=== PATIENT | male | born 1940 | race Caucasian/White ===

== ENCOUNTER 2019-09-04 14:05 | Emergency (ER) | payer MEDICARE ==
--- NOTE | 2019-09-04 15:02 | RAD ---
PORTABLE CHEST: Date: 09/04/2019 PROVIDED CLINICAL HISTORY: Shortness of breath. FINDINGS: The cardiac silhouette appears enlarged. There is prominence of the pulmonary vasculature and pulmona ry interstitium. No focal consolidation is evident. There is blunting of the left costophrenic angle. No evidence for pneumothorax. IMPRESSION: Cardiomegaly and findings suggesting congestive failure with possible left pleural fluid. POS: SUAD
[2019-09-04 15:09] LABS: #Basophils 0.1 thou/uL (0.0-0.2); #Eosinphils 0.4 thou/uL (0.0-0.7); #Lymphocytes 1.8 thou/uL (1.20-3.40); #Monocytes 0.6 thou/uL (0.11-0.59); #Neutrophils 4.5 thou/uL (1.40-6.50); %Basophils 1.2 % (0.0-1.0); %Eosinophils 4.9 % (0.0-10.0); %Lymphocytes 23.9 % (21.0-51.0); %Monocytes 8.7 % (0.0-10.0); %Neutrophils 61.4 % (42.0-75.0); Hemoglobin 12.9 g/dL (14.0-18.0); Mean Corpuscular HGB CONC 32.1 g/dL (32.0-36.0); Mean Corpuscular Hemoglobin 33.5 pg (27.0-31.0); Mean Platelet Volume 7.3 fL (7.4-10.4); Platelet Count 208 thou/uL (130-400); RBC Distribution Width 14.1 % (11.5-14.5); Red Blood Cell (RBC) Count 3.86 mill/uL (4.70-6.10); White Blood Cell (WBC) Count 7.4 thou/uL (4.8-10.8)
[2019-09-04 15:17] LABS: INR-International Normal Ratio 1.2; PTT 33.8 SEC (22.9-36.1); Prothrombin Time 15.2 SEC (12.0-14.7)
[2019-09-04 15:33] LABS: ALT (SGPT) 19 U/L (8-55); AST (SGOT) 19 U/L (5-34); Albumin 4.4 g/dL (3.4-4.8); Alkaline Phosphatase 114 U/L (40-110); Anion Gap 19 mmol/L (10-20); BUN (Urea Nitrogen) 55 mg/dL (8.4-25.7); Bilirubin, Total 0.7 mg/dL (0.2-1.2); CK (CPK) 72 U/L (30-200); Calc. Creatinine Clearance 0 mL/min (70-130); Calcium 9.4 mg/dL (7.8-10.44); Carbon Dioxide 19 mmol/L (23-31); Chloride 109 mmol/L (98-107); Estimated GFR-MDRD 10; Globulin 3.6 g/dL (2.4-3.5); Glucose 103 mg/dL (83-110); Potassium 4.8 mmol/L (3.5-5.1); Sodium 142 mmol/L (136-145)
[2019-09-04 15:56] LABS: CKMB 3.2 ng/mL (0-6.6)
--- NOTE | 2019-09-04 16:30 | ULT ---
ULTRASOUND WITH DOPPLER DUPLEX VENOUS LOWER EXTREMITIES BILATERAL: 09/04/19 HISTORY: 79-year-old male with bilateral lower extremity pain. TECHNIQUE: Color flow Doppler, spectral waveform analysis of pulsed Doppler, and harman-scale imaging with kaur spencer and augmentation, were used to evaluate the bilateral common femoral, femoral, popliteal, banana room cutter ior tibial, and superficial femoral, veins; and the proximal portions of the profunda femoral and gre ater saphenous, veins. FINDINGS: There is normal compressibility, demonstration of blood flow by color Doppler and pulsed Doppler, and response to augmentation, in all interrogated veins. IMPRESSION: Negative. No deep vein thrombosis in the bilateral lower extremities. jn[] POS: JIN
== END 2019-09-04 18:46 | disposition left against medical advice (07) ==
LOC: ERS 14:05
DX: I11.0 Hypertensive heart disease with heart failure (principal); I50.9 Heart failure, unspecified; N17.9 Acute kidney failure, unspecified; Z79.899 Other long term (current) drug therapy
CPT/HCPCS: 71045; 80053; 82550; 82553; 83880; 84484; 85025; 85610; 85730; 93005; 93970

== ENCOUNTER 2020-02-17 14:05 | Observation (INO) | payer MEDICARE, OTHER ==
[2020-02-17] MEDS ORDERED: Zolpidem Tartrate 5 MG TAB PO PRN (14:09)
[2020-02-17] MEDS ORDERED: Acetaminophen 325 MG TAB PO PRN (14:09)
--- NOTE | 2020-02-17 14:38 | PDOC.HHP ---
Hospitalist HPI - History of Present Illness Frequent falls, lower extremity weakness started today History of Present Illness: This patient is known to me. He had a fall from a ladder in September resulting in a L1 compression fracture and a head injury with LOC and disorientation for 3 days at that time. He did not seek treatment until several weeks after the accident when his back pain was not improving. I diagnosed the compression fracture and since he did not want any aggressive treatment, we put him in a corset type brace and he was improving. He had stopped using the brace, but was using crutches to get around his house, just for balance. A walker would have been better, but he did not reach out to me and just started using the crutches on his own. He reports several falls in the last few weeks. Additional history is from his and his DIL. His reports that he has had an increasing number of falls in the last few weeks, the most severe of which was yesterday when he tripped and fell out the back door, down two steps and hit his head on the concrete patio. He did not lose consciousness at that time, but this morning he was unable to stand. He is able to move both legs but cannot bear weight and appears ataxic when he tries to stand up. With significant assist from his son, he able to get to his feet but is unable to ambulate. He has a h/o non-compliance and has refused dialysis for CKD as well as refusal of medications or anticoagulation for chronic a. fib. He is not currently taking any blood thinners or aspirin. His DIL states he is DNR but his states he is full code - we will need to clarify this with them. After discussion with the family in my office, we will admit for observation and work up including imaging of the brain and possibly the lumbar spine. We will also check an ECHO and labs. Hospitalist ROS - Review of Systems Constitutional: reports: weakness. denies: fever, chills, sweats, malaise, other ENT: denies: ear pain, ear discharge, nose pain, nose discharge, nose congestion, mouth pain, mouth swelling, throat pain, throat swelling, other Respiratory: reports: shortness of breath, SOB with excertion. denies: cough, dry, hemoptysis, pleuritic pain, sputum, wheezing, other Cardiovascular: denies: chest pain, palpitations, orthopnea, paroxysmal noc. dyspnea, edema, light headedness, other Gastrointestinal: denies: nausea, vomiting, abdominal pain, diarrhea, constipation, melena, hematochezia, other Genitourinary: denies: dysuria, frequency, incontinence, hematuria, retention, other Musculoskeletal: denies: neck pain, shoulder pain, arm pain, back pain, hand pain, leg pain, foot pain, other Neurological: reports: weakness, incoordination. denies: numbness, change in speech, confusion, seizures, other Hospitalist History - Past Medical History Source: patient, family Cardiac: reports: AFIB, HTN Psych: reports: Anxiety Musculoskeletal: reports: Chronic low back pain Renal/: reports: Chronic renal failure - Past Surgical History Past Surgical History: reports: no pertinent history - Family History Family History: reports: no pertinent history - Social History Smoking Status: Never smoker Alcohol: reports: None Drugs: reports: none Living Situation: With Family Activity level: wheelchair bound - Exam General Appearance: NAD, awake alert ENT: normocephalic atraumatic, no oropharyngeal lesions, moist mucosa Neck: supple, symmetric, no JVD, no thyromegaly, no lymphadenopathy, no carotid bruit Heart: no murmur, no rubs, normal peripheral pulses, irregular Respiratory: CTAB, no wheezes, no rales, no ronchi, normal chest expansion, no tachypnea, normal percussion Gastrointestinal: soft, non-tender, non-distended, normal bowel sounds, no palpable masses, no hepatomegaly, no splenomegaly, no bruit Extremities: 1+ LE edema (Bilateral legs wth pitting to mid-hines) Skin: normal turgor, no lesions, no rashes Neurological: cranial nerve grossly intact, normal sensation to touch, no focal deficits (Ataxia with standing, unable to bear weight on his legs without assist, strength is 4/5 for movement but not weight bearing) Psychiatric: normal affect, normal behavior, A&O x 3 Hospitalist H&P A/P - Problem (1) Frequent falls Code(s): R29.6 - REPEATED FALLS Status: Acute (2) Lower extremity weakness Code(s): R29.898 - OTH SYMPTOMS AND SIGNS INVOLVING THE MUSCULOSKELETAL SYSTEM Status: Acute (3) Head injury Code(s): S09.90XA - UNSPECIFIED INJURY OF HEAD, INITIAL ENCOUNTER Status: Acute (4) Compression fracture of L1 vertebra Code(s): S32.010A - WEDGE COMPRESSION FRACTURE OF FIRST LUMBAR VERTEBRA, INIT Status: Acute (5) Atrial fibrillation Code(s): I48.91 - UNSPECIFIED ATRIAL FIBRILLATION Status: Acute (6) Noncompliance Code(s): Z91.19 - PATIENT'S NONCOMPLIANCE W OTH MEDICAL TREATMENT AND REGIMEN Status: Acute (7) CRF (chronic renal failure) Status: Acute (8) Anxiety Code(s): F41.9 - ANXIETY DISORDER, UNSPECIFIED Status: Acute - Plan Plan: 1. Admit for observation and work up 2. CT brain to rule out bleed - will likely need MRI if the CT is negative but will need sedation for MRI 3. Consider MRI of the lumbar spine as weakness seems more pronounced in the legs, no loss of bowel or bladder control 4. Check labs including renal function 5. Chronic a. fib - currently rate controlled, he has refused blood thinners and given his recent head injury will hold off on any for now. Monitor rate. Cont inue home meds 6. Clarify code status with family - he has an advance directive, request his bring in a copy 7. H/O non-complinace, he has historically not wanted to be aggressive in treatment. Will reassess after work up completed and diagnosis certain. 8. PT evaluation 9. He would likely benefit from rehab but I doubt he would agree to go. Maybe home PT and HHN at discharge if he is amenable to it.
[2020-02-17 16:08] VITALS: BMI 27.6
--- NOTE | 2020-02-17 16:14 | CT ---
Exam: Head CT without contrast HISTORY: Head injury. Fall. COMPARISON: none FINDINGS: Hemorrhage: No intraparenchymal hemorrhage or extra-axial hematoma. Brain parenchyma: Cortical harman-white matter differentiation is preserved. No mass effect or midline shift. Basilar cisterns are patent. Ventricular system: Ventricles and sulci are patent and symmetric. Calvarium: Intact. Sinuses and mastoid air cells: Adequate aeration. IMPRESSION: No intracranial post traumatic sequelae.
[2020-02-17 16:36] LABS: #Eosinphils 0.3 thou/uL (0.0-0.7); #Lymphocytes 1.4 thou/uL (1.20-3.40); #Monocytes 0.7 thou/uL (0.11-0.59); #Neutrophils 4.9 thou/uL (1.40-6.50); %Basophils 0.5 % (0.0-1.0); %Eosinophils 3.5 % (0.0-10.0); %Lymphocytes 18.8 % (21.0-51.0); %Monocytes 9.4 % (0.0-10.0); %Neutrophils 67.7 % (42.0-75.0); Mean Corpuscular HGB CONC 31.7 g/dL (32.0-36.0); Mean Corpuscular Hemoglobin 34.1 pg (27.0-31.0); Mean Platelet Volume 8.5 fL (7.4-10.4); Platelet Count 136 thou/uL (130-400); RBC Distribution Width 16.2 % (11.5-14.5); Red Blood Cell (RBC) Count 4.12 mill/uL (4.70-6.10); White Blood Cell (WBC) Count 7.2 thou/uL (4.8-10.8)
[2020-02-17 16:53] LABS: ALT (SGPT) 17 U/L (8-55); AST (SGOT) 19 U/L (5-34); Albumin 3.9 g/dL (3.4-4.8); Alkaline Phosphatase 116 U/L (40-110); Anion Gap 16 mmol/L (10-20); BUN (Urea Nitrogen) 67 mg/dL (8.4-25.7); Calc. Creatinine Clearance 15 mL/min (70-130); Calcium 9.4 mg/dL (7.8-10.44); Carbon Dioxide 18 mmol/L (23-31); Chloride 109 mmol/L (98-107); Estimated GFR-MDRD 10; Globulin 3.5 g/dL (2.4-3.5); Glucose 80 mg/dL (83-110); Potassium 4.3 mmol/L (3.5-5.1); Protein, Total 7.4 g/dL (5.8-8.1); Sodium 139 mmol/L (136-145)
[2020-02-17 17:08] LABS: MDiff Complete? YES; Macrocytosis SLIGHT = 6-15 cells (100X) (0-5/hpf); Ovalocytes SLIGHT = 2-5 cells (100X) (0-1/hpf); Platelet Morphology Comment Appears Adequate; Polychromasia SLIGHT = 2-3 cells (100X) (0-2/hpf); Tear Drops SLIGHT = 2-5 cells (100X) (0-1/hpf)
[2020-02-17] MEDS ORDERED: ALPRAZolam 1 MG TAB PO PRN (20:31)
[2020-02-17] MEDS ORDERED: Famotidine 20 MG TAB PO SCH (21:00)
[2020-02-18 04:56] LABS: #Basophils 0.1 thou/uL (0.0-0.2); #Eosinphils 0.3 thou/uL (0.0-0.7); #Lymphocytes 1.4 thou/uL (1.20-3.40); #Monocytes 0.6 thou/uL (0.11-0.59); #Neutrophils 4.3 thou/uL (1.40-6.50); %Basophils 1.2 % (0.0-1.0); %Eosinophils 3.8 % (0.0-10.0); %Lymphocytes 21.7 % (21.0-51.0); %Monocytes 8.7 % (0.0-10.0); %Neutrophils 64.6 % (42.0-75.0); Hemoglobin 13.3 g/dL (14.0-18.0); Mean Corpuscular HGB CONC 32.7 g/dL (32.0-36.0); Mean Corpuscular Hemoglobin 34.3 pg (27.0-31.0); Mean Platelet Volume 9.1 fL (7.4-10.4); Platelet Count 137 thou/uL (130-400); Red Blood Cell (RBC) Count 3.88 mill/uL (4.70-6.10); White Blood Cell (WBC) Count 6.6 thou/uL (4.8-10.8)
[2020-02-18 05:24] LABS: Anion Gap 16 mmol/L (10-20); BUN (Urea Nitrogen) 66 mg/dL (8.4-25.7); Calc. Creatinine Clearance 15 mL/min (70-130); Calcium 9.2 mg/dL (7.8-10.44); Carbon Dioxide 16 mmol/L (23-31); Chloride 111 mmol/L (98-107); Estimated GFR-MDRD 11; Glucose 82 mg/dL (83-110); Potassium 3.8 mmol/L (3.5-5.1); Sodium 139 mmol/L (136-145)
[2020-02-18] MEDS ORDERED: Diazepam 10 MG/2 ML SYRINGE IVP SCH (09:00)
[2020-02-18] MEDS ORDERED: Aspirin 325 mg Enteric Coated Tablet PO SCH (09:00)
[2020-02-18] MEDS ORDERED: Labetalol HCl 100 MG/20 ML VIAL SLOW IVP PRN (09:03)
[2020-02-18 12:00] LABS: SARS-CoV-2 MS2 Positive; SARS-CoV-2 N Gene Negative; SARS-CoV-2 S Gene Negative; SARS-CoV-2 by NAA Not Detected (NotDetected); SARS-CoV-2 orf1ab Negative
[2020-02-18 14:58] VITALS: BP 134/100; TEMP 97.4
--- NOTE | 2020-02-18 15:26 | CON ---
DATE OF CONSULTATION: 02/18/2020 REASON FOR CONSULTATION: Lower extremity weakness, frequent falls. HISTORY OF PRESENT ILLNESS: Mr. Conway is a 79-year-old male who presented to the emergency room with frequent falls and lower extremity weakness. Per the patient, he had several falls in the last few weeks. According to his , he has increased number of falls in the last few weeks. He did hit his head but he did not lose consciousness. The patient denies focal jerking, focal paresthesias, nausea, vomiting, headache, chest pain, abdominal pain, loss of vision, blurred vision, or loss of consciousness associated with the falls. He does have history of noncompliance and has refused hemodialysis for chronic kidney disease and is not on any anticoagulation for chronic atrial fibrillation. He is not on aspirin or blood thinners. He was admitted to rule out stroke. REVIEW OF SYSTEMS: All 14 systems was reviewed and was negative except the pertinent positive and negative mentioned in the HPI. PAST MEDICAL HISTORY: Atrial fibrillation, hypertension, anxiety, chronic back pain, chronic renal failure. PAST SURGICAL HISTORY: None significant. FAMILY HISTORY: No family history of stroke. SOCIAL HISTORY: The patient lives with family. Wheelchair bound. Denies smoking, alcohol, or illegal drug use. ALLERGIES: NKDA Vital Signs & Weight: Vital Signs (12 hours) Temp Pulse Resp BP Pulse Ox 02/18/20 14:57 97.4 F L 94 20 134/100 H 97 02/18/20 12:24 97.5 F L 98 20 143/107 H 95 02/18/20 07:32 97.5 F L 104 H 23 H 141/71 H 97 Weight Weight 198 lb 9.6 oz I&O: 02/17/20 02/18/20 02/19/20 06:59 06:59 06:59 Intake Total 355 12 Output Total 210 Balance 145 12 Active Medications Generic Name Dose Route Start Last Admin Trade Name Freq PRN Reason Stop Dose Admin Alprazolam 1 mg 02/17/20 20:31 02/18/20 09:10 Alprazolam 1 Mg Tab PO 1 mg BID PRN Administration Anxiety Aspirin 325 mg 02/18/20 09:00 02/18/20 10:48 Aspirin 325 Mg Enteric Coated Tablet PO 325 mg DAILY WAGNER Administration Zolpidem Tartrate 5 mg 02/17/20 14:09 09/30/20 22:06 Zolpidem Tartrate 5 Mg Tab PO 5 mg HSPRN PRN Administration Insomnia PHYSICAL EXAMINATION: General Appearance: NAD, awake alert ENT: normocephalic atraumatic, no oropharyngeal lesions, moist mucosa Neck: supple, symmetric, no JVD, no thyromegaly, no lymphadenopathy, no carotid bruit Heart: no murmur, irregular Respiratory: CTAB, no wheezes, no rales, no ronchi, normal chest expansion, no tachypnea, normal percussion Gastrointestinal: soft, non-tender, non-distended, normal bowel sounds, no palpable masses, no hepatomegaly, no splenomegaly, no bruit Extremities: 1+ LE edema Neurological: Mental status, the patient is alert and oriented to person, place, and time. Cranial nerves 2 through 12 intact. Motor, muscle tone and bulk are normal. Moving all 4 extremities. Sensory, withdraws to nailbed pressure bilaterally. Cerebellar, intact. Gait deferred due to patient's safety reason. DATA REVIEWED: I reviewed the CT scan, which was negative for acute intracranial pathology. ASSESSMENT AND PLAN: (1) Frequent falls Code(s): R29.6 - REPEATED FALLS Status: Acute (2) Lower extremity weakness Code(s): R29.898 - OTH SYMPTOMS AND SIGNS INVOLVING THE MUSCULOSKELETAL SYSTEM Status: Acute (3) Head injury Code(s): S09.90XA - UNSPECIFIED INJURY OF HEAD, INITIAL ENCOUNTER Status: Acute (4) Compression fracture of L1 vertebra Code(s): S32.010A - WEDGE COMPRESSION FRACTURE OF FIRST LUMBAR VERTEBRA, INIT Status: Acute (5) Atrial fibrillation Code(s): I48.91 - UNSPECIFIED ATRIAL FIBRILLATION Status: Acute (6) Noncompliance Code(s): Z91.19 - PATIENT'S NONCOMPLIANCE W OT MEDICAL TREATMENT AND REGIMEN Status: Acute (7) CRF (chronic renal failure) Status: Acute (8) Anxiety Code(s): F41.9 - ANXIETY DISORDER, UNSPECIFIED Status: Acute (9) T12 compression fracture Code(s): S22.080A - WEDGE COMPRESSION FRACTURE OF T11-T12 VERTEBRA, INIT Status: Acute Mr. Lesly Conway is consulted for frequent falls, and there is a concern for cerebrovascular accident. Consider MRI of the brain to rule out acute intracranial process. Consider lumbar spine MRI to rule out lumbar disc disease progression. Neuro checks every 4 hours. Continue medical management per primary team. Telemetry. PT/OT/Speech. Continue medical management per primary team. Continue home medications. We will continue to follow. Thank you for the consult. Job ID: [id number]
--- NOTE | 2020-02-18 15:36 | MRI ---
MRI BRAIN: Date: 02/18/2020 HISTORY: Evaluate for CVA. History of fall. Weakness. COMPARISON: None. FINDINGS: No evidence of hemorrhage on the axial gradient echo sequence. Calvarium has a normal T1 marrow signal intensity. Midline brain parenchymal structures have a normal appearance. No parenchymal mass, mass effect, or midline shift. Age-appropriate brain volume. Cortical harman-white matter differentiation is preserved. No hydrocephalus. Central arterial flow-voids are maintained. Absence restricted diffusion. Adequate aeration of the sinuses and mastoid air cells. IMPRESSION: 1. Absent restricted diffusion. No acute infarct. 2. Age-appropriate atrophy. 3. T2 and FLAIR white matter hyperintensities due to chronic small vessel ischemic change. POS: BOO
--- NOTE | 2020-02-18 16:33 | MRI ---
MRI LUMBAR SPINE WITHOUT CONTRAST: Date: 02/18/2020 HISTORY: Falls. Weakness. COMPARISON: None. FINDINGS: There is motion degradation on all of the sequences. There is appropriate T1 marrow signal intensity of the lumbar vertebra. Lumbar spine vertebral body height is maintained. There is no lumbar spine fracture. There is a possible acute mild to moderate compression fracture involving the superior end plate of T 12. Spondylolisthesis: 2.9 mm of anterolisthesis of L4 upon L5. Appropriate signal intensity of the visualized paraspinal muscles and solid organs. Conus medullaris terminates at the mid L1 level. The overall AP diameter of the central spinal canal is narrowed, secondary to congenitally foreshorte seema pedicles. T12-L1: Disc desiccation with moderate loss of disc space height. Broad based disc bulge, ligamentum flavum thickening, and facet hypertrophy result in moderate central canal stenosis. Patent bilateral neural foramina. L1-L2: Disc desiccation with moderate loss of disc space height. Broad based disc bulge, ligamentum flavum thickening, and facet hypertrophy result in severe central canal stenosis. Moderate bilateral neural foraminal narrowing. L2-L3: Disc desiccation without significant loss of disc space height. Broad based disc bulge result s in mild central canal stenosis. Moderate bilateral neural foraminal narrowing. L3-L4: Disc desiccation with moderate loss of disc space height. Broad based disc bulge, ligamentum flavum thickening, and facet hypertrophy result in severe central canal stenosis. Moderate right and severe left neural foraminal narrowing. L4-L5: There is no significant loss of disc space height. There is a broad based disc bulge, ligamen isac flavum thickening, and facet hypertrophy with severe central canal stenosis. Moderate to severe r ight and severe left neural foraminal narrowing. L5-S1: Adequate disc hydration. Broad based disc bulge with a small central disc herniation. Mild na rrowing of both subarticular zones. Mild central canal stenosis. Moderate right and left foraminal na rrowing. IMPRESSION: 1. Significant central canal stenosis and foraminal narrowing at multiple levels. Overall AP diamete r of the central spinal canal is narrowed secondary to congenitally foreshortened pedicles. 2. Mild to moderate T1 compression fracture without significant retropulsion. Presence of edema sugg ests a possible acute process. On correlation made with a previous radiograph of lumbar spine on 05/2019, there does appear to be interval loss of vertebral body height. POS: H
[2020-02-18] MEDS ORDERED: Furosemide 40 MG/4 ML VIAL SLOW IVP SCH (17:30)
--- NOTE | 2020-02-18 17:30 | PDOC.HOSPP ---
- Subjective Encounter Date: 02/18/20 Encounter Time: 14:00 Subjective: Patient denies pain. He is still not able to bear weight on his legs due to balance and coordination issues. His strength for movement in the bed is normal. He is adamant about going home today. He is refusing aggressive treatment and after discussion with the family, we will make arrangements for home hospice. - Objective Vital Signs & Weight: Vital Signs (12 hours) Temp Pulse Resp BP Pulse Ox 02/18/20 14:57 97.4 F L 94 20 134/100 H 97 02/18/20 12:24 97.5 F L 98 20 143/107 H 95 02/18/20 07:32 97.5 F L 104 H 23 H 141/71 H 97 Weight Weight 198 lb 9.6 oz I&O: 02/17/20 02/18/20 02/19/20 06:59 06:59 06:59 Intake Total 355 12 Output Total 210 Balance 145 12 Result Diagrams: 02/18/20 04:28 02/18/20 04:28 Radiology Reviewed by me: Yes (MRI brain negative for CVA, MRI lumbar spine - severe stenosis, T12 fx) Hospitalist ROS - Review of Systems Constitutional: reports: weakness. denies: fever, chills, sweats, malaise, other ENT: denies: ear pain, ear discharge, nose pain, nose discharge, nose congestion, mouth pain, mouth swelling, throat pain, throat swelling, other Respiratory: denies: cough, dry, shortness of breath, hemoptysis, SOB with excertion, pleuritic pain, sputum, wheezing, other Cardiovascular: denies: chest pain, palpitations, orthopnea, paroxysmal noc. dyspnea, edema, light headedness, other Gastrointestinal: denies: nausea, vomiting, abdominal pain, diarrhea, constipation, melena, hematochezia, other Genitourinary: denies: dysuria, frequency, incontinence, hematuria, retention, other Musculoskeletal: reports: back pain. denies: neck pain, shoulder pain, arm pain, hand pain, leg pain, foot pain, other - Medication Medications: Active Medications Generic Name Dose Route Start Last Admin Trade Name Freq PRN Reason Stop Dose Admin Alprazolam 1 mg 02/17/20 20:31 02/18/20 09:10 Alprazolam 1 Mg Tab PO 1 mg BID PRN Administration Anxiety Aspirin 325 mg 02/18/20 09:00 02/18/20 10:48 Aspirin 325 Mg Enteric Coated Tablet PO 325 mg DAILY WAGNER Administration Zolpidem Tartrate 5 mg 02/17/20 14:09 02/17/20 22:06 Zolpidem Tartrate 5 Mg Tab PO 5 mg HSPRN PRN Administration Insomnia - Exam General Appearance: NAD, awake alert ENT: normocephalic atraumatic, no oropharyngeal lesions, moist mucosa Neck: supple, symmetric, no JVD, no thyromegaly, no lymphadenopathy, no carotid bruit Heart: no murmur, irregular Respiratory: CTAB, no wheezes, no rales, no ronchi, normal chest expansion, no tachypnea, normal percussion Gastrointestinal: soft, non-tender, non-distended, normal bowel sounds, no palpable masses, no hepatomegaly, no splenomegaly, no bruit Extremities: 1+ LE edema Neurological: cranial nerve grossly intact, normal sensation to touch, no focal deficits (Loss of coordination and unsteady when trying to stand) Psychiatric: normal affect, normal behavior, A&O x 3 Hosp A/P (1) Frequent falls Code(s): R29.6 - REPEATED FALLS Status: Acute (2) Lower extremity weakness Code(s): R29.898 - OT SYMPTOMS AND SIGNS INVOLVING THE MUSCULOSKELETAL SYSTEM Status: Acute (3) Head injury Code(s): S09.90XA - UNSPECIFIED INJURY OF HEAD, INITIAL ENCOUNTER Status: Acute (4) Compression fracture of L1 vertebra Code(s): S32.010A - WEDGE COMPRESSION FRACTURE OF FIRST LUMBAR VERTEBRA, INIT Status: Acute (5) Atrial fibrillation Code(s): I48.91 - UNSPECIFIED ATRIAL FIBRILLATION Status: Acute (6) Noncompliance Code(s): Z91.19 - PATIENT'S NONCOMPLIANCE W OTH MEDICAL TREATMENT AND REGIMEN Status: Acute (7) CRF (chronic renal failure) Status: Acute (8) Anxiety Code(s): F41.9 - ANXIETY DISORDER, UNSPECIFIED Status: Acute (9) T12 compression fracture Code(s): S22.080A - WEDGE COMPRESSION FRACTURE OF T11-T12 VERTEBRA, INIT Status: Acute - Plan plan discussed w/ family, PT/OT, social services manager Consults: Hospice 1. His acute symptoms of gait instability and weakness are likely related to edema from the T12 compression fracture. 2. I offered consultation with neurosurgery for the spinal stenosis and his acute symptoms and he refused stating he definitely does not want surgery. He was adamant about going home today. 3. ECHO is still pending but EF is poor according to the tech. Again, the patient refuses cardiology consultation. He has historically been non-compliant with his medications and is not interested in aggressive treatment. I will follow up on the final reading. 4. Fluid overload - will give one time IV lasix dose though I am not sure how much this will do in light of his renal failure. 5. End-stage renal failure - GFR 10. He is still making some urine. He is refusing dialysis. Would likely qualify for hospice due to end-stage renal failure and now cardio-renal syndrome with heart failure as well. 6. Plan to discharge home tonight - I spoke with his son Tushar who will work with the family to be sure he is reasonably safe at home. I will arrange for outpatient hospice. He will need some equipment in the home including a walker and possibly a hospital bed. 7. No changes to his home meds. Await final ECHO. Could arrange outpatient cardiology follow up if he would agree. 8. Advised his son to resume use of his corset type back brace given the acute appearance of this T12 compression fracture. Hopefully as some of that swelling comes down, he will regain some stability in his legs.
[2020-02-18] MEDS ORDERED: Famotidine 20 MG TAB PO SCH (21:00)
== END 2020-02-18 18:18 | disposition home or self-care (01) ==
LOC: 2SE 14:09
PROVIDERS: ADMIT Family Medicine; ATTEND Family Medicine
DX: R29.898 Other symptoms and signs involving the musculoskeletal system (principal); I48.20 Chronic atrial fibrillation, unspecified; E87.70 Fluid overload, unspecified; S09.90XA Unspecified injury of head, initial encounter; S32.010A Wedge compression fracture of first lumbar vertebra, initial encounter for closed fracture; S22.080A Wedge compression fracture of T11-T12 vertebra, initial encounter for closed fracture; I12.0 Hypertensive chronic kidney disease with stage 5 chronic kidney disease or end stage renal disease; N18.6 End stage renal disease; F41.9 Anxiety disorder, unspecified; G89.29 Other chronic pain; M54.5 Low back pain; R29.6 Repeated falls; M48.061 Spinal stenosis, lumbar region without neurogenic claudication; M43.16 Spondylolisthesis, lumbar region; Z79.82 Long term (current) use of aspirin; Z79.899 Other long term (current) drug therapy; Z91.14 Patient's other noncompliance with medication regimen; Z91.15 Patient's noncompliance with renal dialysis
CPT/HCPCS: 70450; 70551; 72148; 80048; 80053; 83880; 85025 ×2; 93306; 97139 ×2; U0003; 36415; 87635; 96374; 96375; G0378; G0379; J1940; J3360